=== PATIENT | female | born 1950 | race African-American/Black ===

== ENCOUNTER 2017-02-10 19:43 | Emergency (ER) | payer MEDICARE, MEDICAID ==
[~2017-02-10] VITALS: Ht 154.9 cm; Wt 61.2 kg
[~2017-02-10 19:43] MED LIST: BENTYL10 MG ORAL; CYCLOBENZAPRINE10 MG ORAL; PANTOPRAZOLE SO40 MG ORAL; TYLENOL325 MG ORAL; ZANTAC150 MG ORAL
[2017-02-10] MEDS ORDERED: HYDROCODON-ACE1 EA16 ORAL (19:55)
[2017-02-10 19:59] VITALS: BP 117/81
[2017-02-10] MEDS ORDERED: LIDOCAINE20 MG/1 M1 MM (20:12)
[2017-02-10] MEDS ORDERED: FLONASE ALLERG9.9 ML NS (20:12)
[2017-02-10] MEDS ORDERED: ACETAMINOPHEN-1 EAC1 ORAL (20:12)
[2017-02-10] MEDS ORDERED: Lidocaine 2% Visc 15ml soln ORAL ONE (20:15)
[2017-02-10 20:20] VITALS: BP 117/81
--- NOTE | 2017-02-14 07:11 | Emergency Room Report ---
History of Present Illness General Chief Complaint: General Complaint Source: Patient Present Illness HPI [id number] [employer], walk-in with 1 day of sore throat and body aches. C/o chills Denies chest pain, SOB, abd pain C/o generalized "aches and pains." C.o nasal congestion as well. Denies other medical problems, sick contacts, foreign travel Allergies: Coded Allergies: No Known Allergies (Unverified , 07/27/15) Nursing Documentation-[facility] Past Medical History: No History, Except For Hx Gastrointestinal Problems: Yes - gastritis, esophagial refux , hysterectomy Review of Systems All Other Systems: negative except mentioned in HPI Physical Exam Vital Signs Date Time Temp Pulse Resp B/P (MAP) Pulse Ox O2 Delivery O2 Flow Rate FiO2 02/10/17 19:49 99.1 102 20 117/81 98 Room Air Sp02 EP Interpretation: reviewed, normal General Appearance: normal inspection, well appearing, no apparent distress, alert, GCS 15, non-toxic Head: normocephalic, atraumatic Eyes: bilateral eye PERRL, bilateral eye EOMI ENT: normal ENT inspection, hearing grossly normal, normal pharynx, no angioedema, normal voice, pharyngeal erythema, other Neck: normal inspection, full range of motion, supple, no bony tend Respiratory: normal inspection, lungs clear, normal breath sounds, no respiratory distress, no retraction, no wheezing Cardiovascular #1: regular rate, rhythm, no edema Gastrointestinal: normal inspection, normal bowel sounds, non tender, soft, no guarding, no hernia Genitourinary: no CVA tenderness Musculoskeletal: normal inspection, back normal, normal range of motion, Joel' s Sign negative Neurologic: normal inspection, alert, oriented x3, responsive, hoof trimmer III-XII nml as tested, motor strength/tone normal, speech normal Psychiatric: normal inspection, judgement/insight normal, mood/affect normal Skin: normal inspection, normal color, no rash Medical Decision Making Diagnostic Impression: Primary Impression: Pharyngitis, acute Qualified Codes: J02.8 - Acute pharyngitis due to other specified organisms Additional Impressions: Myalgia Flu-like symptoms ER Course Sinus congestion with posterior pharyngeal edema, body aches No tonsillar exudates or other obvious signs of bacterial infection warranting infection at this time Vitals stable. Afebrile Sinus congestion likely from sinus drainage Rx flonase, viscuous lido for sore throat DC home PMD followup Last Vital Signs Date Time Temp Pulse Resp B/P (MAP) Pulse Ox O2 Delivery O2 Flow Rate FiO2 02/10/17 20:20 99.1 102 20 117/81 98 Room Air Status: improved Disposition: HOME, SELF-CARE Condition: Improved Scripts Fluticasone Propionate (Flonase Allergy Relief) 9.9 Ml [place].susp 9.9 ML NS BID for 7 Days, #1 UNIT Prov: AMELIA ANDRADE M.D. 02/10/17 Acetaminophen With Codeine (T#3) (TYLENOL #3 TAB*) Y Tab 1 TAB ORAL Q8H Y for sore throat, #20 TAB Prov: AMELIA ANDRADE M.D. 02/10/17 Lidocaine HCl (Lidocaine HCl Viscous) 100 Ml Solution 10 ML MM TID for 7 Days, #1 UNIT Prov: AMELIA ANDRADE M.D. 02/10/17 Referrals: NON PHYSICIAN (PCP) Patient Instructions: Pharyngitis, [id number] Additional Instructions: - Use lidocaine every 8 hours for sore throat - Drink lots of water, tea with honey - Use Flonase nasal spray 2x a day to decongest your nose - Take Tylenol #3 at night or when not driving for sore throat AMELIA ANDRADE M.D. Feb 14, 2017 07:11
== END 2017-02-10 20:35 | disposition home or self-care (01) ==
LOC: EMR 20:24
DX: J02.9 Acute pharyngitis, unspecified (principal); R68.89 Other general symptoms and signs; R09.81 Nasal congestion; K29.70 Gastritis, unspecified, without bleeding; K21.9 Gastro-esophageal reflux disease without esophagitis; Z90.710 Acquired absence of both cervix and uterus; M79.1 Myalgia
CPT/HCPCS: 99283

== ENCOUNTER 2017-08-10 10:09 | Emergency (ER) | payer MEDICARE, MEDICAID ==
[~2017-08-10] VITALS: Ht 154.9 cm; Wt 58.1 kg
[~2017-08-10 10:09] MED LIST changes: +ACETAMINOPHEN-1 EAC1 ORAL; +FLONASE ALLERG9.9 ML NS; +HYDROCODON-ACE1 EA16 ORAL; +LIDOCAINE20 MG/1 M1 MM
[2017-08-10 10:33] VITALS: BP 107/71
[2017-08-10 10:54] VITALS: BP 107/71
--- NOTE | 2017-08-10 10:59 | Emergency Room Report ---
History of Present Illness General Chief Complaint: Eye Problems Source: Patient Present Illness HPI 67-year-old female, no significant past medical history, presenting with left eye pain and swelling. Patient states that she woke up yesterday, had a bump on her right eyelid. This morning became a little bit better when she woke up and then slowly decrease again upon coming to the emergency room. No fever no chills. At able to open the eye without difficulty. No purulent drainage from Allergies: Coded Allergies: No Known Allergies (Unverified , 08/10/17) Patient History Past Medical History: see triage record Past Surgical History: none Pertinent Family History: none Last Menstrual Period: na Reviewed Nursing Documentation: PMH: Agreed, PSxH: Agreed Nursing Documentation-PMH Past Medical History: No Stated History Hx Gastrointestinal Problems: Yes - gastritis, esophagial refux , hysterectomy Review of Systems All Other Systems: negative except mentioned in HPI Physical Exam Vital Signs Date Time Temp Pulse Resp B/P (MAP) Pulse Ox O2 Delivery O2 Flow Rate FiO2 08/10/17 10:20 98.9 76 16 107/71 99 Room Air 99.0 Sp02 EP Interpretation: reviewed, normal General Appearance: normal inspection, well appearing, no apparent distress, alert, GCS 15, non-toxic Head: normocephalic, atraumatic Eyes: right eye other - Right eye lid upper aged, redness and swelling, hordeolum, bilateral eye PERRL, bilateral eye EOMI ENT: normal ENT inspection, normal pharynx, normal voice, moist mucus membranes Neck: normal inspection, full range of motion, supple Respiratory: normal inspection, lungs clear, normal breath sounds, no respiratory distress, no retraction, no wheezing, speaking full sentences, chest symmetrical Cardiovascular #1: normal inspection, regular rate, rhythm, normal capillary refill Cardiovascular #2: 2+ radial (R), 2+ radial (L) Gastrointestinal: normal inspection, non tender, soft, non-distended, no guarding Musculoskeletal: normal inspection, back normal, normal range of motion, non- tender Neurologic: normal inspection, alert, oriented x3, responsive, motor strength/ tone normal, sensory intact, normal gait, speech normal Psychiatric: normal inspection, judgement/insight normal, memory normal Skin: normal inspection, normal color, no rash, warm/dry, well hydrated, normal turgor Medical Decision Making Diagnostic Impression: Primary Impression: Hordeolum externum of right eye ER Course 67-year-old female with right eye lid swelling inflammation DDX: hordeolum Physical exam does not reveal orbital or preseptal cellulitis Plan: None ER course: Patient has remained stable during ED stay. Disposition: Patient is to be discharged to home. Patient is instructed to use warm soaks to eye 4 times daily Patient is instructed to follow up with their primary care doctor within 5 days. Please note that this Emergency Department Report was dictated using [employer] developer technology software, occasionally this can lead to erroneous entry secondary to interpretation by the dictation equipment Last Vital Signs Date Time Temp Pulse Resp B/P (MAP) Pulse Ox O2 Delivery O2 Flow Rate FiO2 08/10/17 10:54 98.9 76 16 107/71 99 Room Air 98.9 Disposition: HOME, SELF-CARE Condition: Improved Referrals: NON PHYSICIAN (PCP) Patient Instructions: [place] Additional Instructions: Please apply warm compresses to your right eye, about 10 minutes each time, 4-5 times a day. Please followup with your doctor in one week Please return if you have a rapid swelling or rash of eye, inability to open the eye, fever chills Thompson Miller M.D. Aug 10, 2017 10:59
== END 2017-08-10 10:55 | disposition home or self-care (01) ==
LOC: EMR 10:51
DX: H00.011 Hordeolum externum right upper eyelid (principal); Z90.710 Acquired absence of both cervix and uterus
CPT/HCPCS: 99282

== ENCOUNTER 2018-06-17 19:58 | Emergency (ER) | payer MEDICARE ==
[~2018-06-17] VITALS: Ht 157.5 cm; Wt 52.2 kg
[~2018-06-17 19:58] MED LIST changes: +ALBUTEROL SULF8.5 GM INH; +ZITHROMAX250 MG ORAL
--- NOTE | 2018-06-17 20:35 | NUR ---
ED Nurse Note: RECIEVED PT FROM HOME WITH C/O SEVERE, SUDDEN BACK PAIN AT 10, PT SUFFERS FROM CHRONIC SIATICA AND STATES THIS FEELS VERY DIFFERENT, PT IS AMBULATING SLOWLY, DENIES CP OR ANY OTHER COMPLAINTS, PT IS CURRENTLY ON PAIN MANAGEMENT AT HOME FOR CHRONIC PAIN BUT STATES HER MEDS ARE NOT WORKING, PT TAKES VICODIN AT HOME. PT ASSISTED TO LEANNA, WILL RESUME CARE ORDERED.
--- NOTE | 2018-06-17 20:51 | Emergency Room Report ---
History of Present Illness General Chief Complaint: Pain Source: Patient Present Illness HPI Patient presents emergency department today complaining of left lower extremity pain. Patient states that she has a history of chronic lower back pain. Patient takes Lorcet for pain. Patient states that she sees pain management. She's had multiple injections in her back. Although she's never had surgery. Patient also has a history of sciatica. Patient denies any other medical conditions. Patient states that for the last couple days she's felt very severe pain in her left lower extremity. The pain feels like it's inside her legs. She does not have any difficulty with moving her leg. Denies any numbness tingling or difficulty with urination. Denies any other injuries. Denies any other complaints. Patient states that she would like to have pain medication. She states that she knows this is from her issues in her back because it feels like neuropathic pain. She denies any leg swelling. No other complaints are noted. Symptoms noted to be moderate to severe.No other modifying factors. No other associated signs and symptoms. No other complaints were noted. Allergies: Coded Allergies: No Known Allergies (Unverified , 08/10/17) Patient History Past Medical History: GERD, other - Gastritis Past Surgical History: hysterectomy Social History: Denies: smoking, alcohol use, drug use Last Menstrual Period: UNK Reviewed Nursing Documentation: PMH: Agreed; PSxH: Agreed Nursing Documentation-PMH Past Medical History: No History, Except For Hx Cardiac Problems: No Hx Hypertension: No Hx Pacemaker: No Hx Asthma: No Hx COPD: No Hx Diabetes: No Hx Cancer: No Hx Gastrointestinal Problems: Yes - gastritis, GERD , total hysterectomy Hx Dialysis: No Hx Neurological Problems: No - herniated disc Hx Cerebrovascular Accident: No Hx Seizures: No Review of Systems All Other Systems: negative except mentioned in HPI Physical Exam Vital Signs Date Time Temp Pulse Resp B/P (MAP) Pulse Ox O2 Delivery O2 Flow Rate FiO2 06/17/18 20:26 98.4 89 18 127/66 100 Room Air Sp02 EP Interpretation: reviewed, normal General Appearance: normal inspection, well appearing, no apparent distress, alert Head: atraumatic Eyes: bilateral eye normal inspection ENT: normal ENT inspection, hearing grossly normal, normal voice Neck: normal inspection, full range of motion, supple, no bony tend Respiratory: normal inspection, lungs clear, normal breath sounds, no respiratory distress, no retraction, no wheezing Cardiovascular #1: regular rate, rhythm, no edema Gastrointestinal: normal inspection, normal bowel sounds, non tender, soft, no guarding, no hernia Genitourinary: no CVA tenderness Musculoskeletal: normal inspection, back normal, normal range of motion Neurologic: normal inspection, alert, responsive, speech normal Psychiatric: normal inspection, judgement/insight normal, mood/affect normal Skin: normal inspection, normal color, no rash Medical Decision Making Diagnostic Impression: Primary Impression: UTI (urinary tract infection) Additional Impression: Leg pain, left ER Course Patient presents emergency department today complaining of left leg pain. Differential considerations include sciatica, muscle spasm, radiculopathy, UTI, DVT, arterial insufficiency just to name a few. Patient's medical records were reviewed. Patient's laboratory workup was negative except for UTI. Patient's exam is consistent with likely radiculopathy. Patient was given a shot of Toradol and morphine and feels much better. Patient is taking Lorcet at home. We'll add Ultram. We'll provide prescription for Cipro for UTI.Patient is advised to follow up with primary doctor in 2-3 days and return the emergency room for any worsening symptoms and as needed. Labs Test 06/17/18 21:00 Urine Color Bev Urine Appearance Slightly cloudy Urine pH 5 (4.5-8.0) Urine Specific [place] 1.025 (1.005-1.035) Urine Protein 2+ (NEGATIVE) Urine Glucose (UA) Negative (NEGATIVE) Urine Ketones 1+ (NEGATIVE) Urine Blood Negative (NEGATIVE) Urine Nitrite Negative (NEGATIVE) Urine Bilirubin Negative (NEGATIVE) Urine Ictotest Negative (NEGATIVE) Urine Urobilinogen 1 MG/DL (0.0-1.0) Urine Leukocyte Esterase 2+ (NEGATIVE) Urine RBC 0-2 /HPF (0 - 2) Urine WBC 5-10 /HPF (0 - 2) Urine Squamous Epithelial Cells Few /LPF (NONE/OCC) Urine Amorphous Sediment Many /LPF (NONE) Urine Bacteria Few /HPF (NONE) Last Vital Signs Date Time Temp Pulse Resp B/P (MAP) Pulse Ox O2 Delivery O2 Flow Rate FiO2 06/17/18 20:26 98.4 89 18 127/66 100 Room Air Status: improved Disposition: HOME, SELF-CARE Condition: Stable Scripts Tramadol Hcl* (ULTRAM*) 50 Mg Tablet 50 MG ORAL Q6H PRN for For Pain, #30 TAB 0 Refills Prov: Maxime De La Rosa MD 06/17/18 Ciprofloxacin Hcl* (CIPROFLOXACIN HCL*) 500 Mg Tablet 500 MG ORAL Q12H, #14 TAB 0 Refills Prov: Maxime De La Rosa MD 06/17/18 Maxime De La Rosa MD Jun 17, 2018 20:51
[2018-06-17] MEDS ORDERED: Morphine Sulfate 4mg/ml Inj (IV/IM USE ONLY) IM ONE ×2 (21:00→23:00)
[2018-06-17] MEDS ORDERED: Ketorolac 30mg Inj IM ONE (21:00)
[2018-06-17 21:35] VITALS: BP 121/68
[2018-06-17 21:38] LABS: BILIRUBIN, URINE NEGATIVE (NEGATIVE); COLOR,URINE AMBER; GLUCOSE, URINE (UA) NEGATIVE (NEGATIVE); KETONES,URINE 1+ (NEGATIVE); LEUKOCYTE ESTERASE ,URINE 2+ (NEGATIVE); NITRITE,URINE NEGATIVE (NEGATIVE); PH,URINE 5 (4.5-8.0); PROTEIN,URINE 2+ (NEGATIVE); UROBILINOGEN,URINE 1 MG/DL (0.0-1.0)
[2018-06-17 21:45] LABS: APPEARANCE,URINE SLIGHTLY CLOUDY
--- NOTE | 2018-06-17 22:00 | NUR ---
ED Nurse Note: pt medicated for pain as ordered, meds effective, tp is sleeping, arouses easily to verbal stimuli, pt states pain level at 4/10, v/s stable, no sob or labored breathing, assisted to bathroom, ambulates a bit better but still limited, son at bedside, will continue to closely monitor and prepare for disposition.
[2018-06-17] MEDS ORDERED: TRAMADOL HCL50 MG ORAL (22:04)
[2018-06-17] MEDS ORDERED: CIPROFLOXACIN500 M2 ORAL (22:04)
[2018-06-17] MEDS ORDERED: Ciprofloxacin 500mg tab ORAL ONE (22:15)
[2018-06-17 23:00] VITALS: BP 126/58
--- NOTE | 2018-06-17 23:05 | NUR ---
ED Nurse Note: PT BEING D/C TO HOME, WITH SON TO DRIVE AND ASSIST, PT IS AWAKE, ALERT AND ORIENTED X 4, PT GIVEN ANOTYHER DOSE PF PAIN MEDS BEFORE GOING HOME PER MD ORDER, PT CAN NOT GO TO PHARMACY TONIGHT, PT GIVEN F/U INFO, AFTER CARE INSTRUCITONS AND RE-VERBALIZES PROPER MEDICATION ADMINISTRATION, PT WHEELCHAIRED TO CAR WITH EMT ASSIST, ARMBAND REMOVED, NAD NOTED DURING D/C TO HOME.
[2018-06-17 23:10] VITALS: BP 126/58
== END 2018-06-17 23:10 | disposition home or self-care (01) ==
LOC: EMR 20:45
DX: M79.605 Pain in left leg (principal); N39.0 Urinary tract infection, site not specified; G89.29 Other chronic pain; M54.5 Low back pain; K21.9 Gastro-esophageal reflux disease without esophagitis; Z90.710 Acquired absence of both cervix and uterus
CPT/HCPCS: 81003; 96372; 99283; J1885; J2270